=== PATIENT | female | born 1965 | race Caucasian/White ===

== ENCOUNTER 2023-10-22 08:16 | Emergency (ER) | payer OTHER, SELFPAY ==
[2023-10-22 08:25] VITALS: BP 134/61
[2023-10-22 08:32] VITALS: BMI 41.2
[2023-10-22 09:00] LABS: % Basophils 0.8 % (0-2); % Eosinophils 2.2 % (0-6); % Immature Granulocytes 0.9 % (0-0.5); % Lymphocytes 27.3 % (20.5-51.1); % Monocytes 6.5 % (1.7-9.3); % Neutrophils 62.3 % (42.2-75.2); Absolute Basophils 0.1 10^3/uL (0-0.2); Absolute Eosinophils 0.2 10^3/uL (0-0.7); Absolute Immature Granulocytes 0.1 10^3/uL (0-0.05); Absolute Monocytes 0.5 10^3/uL (0.1-0.6); Absolute Neutrophils 4.6 10^3/uL (1.4-6.5); Hematocrit 36.3 % (37.0-47.0); Mean Corp Hgb Conc. 33.1 g/dL (33.0-37.0); Mean Corpuscular Hgb 27.9 pg (27.0-31.0); Mean Corpuscular Volume 84.4 fL (81.0-99.0); Mean Platelet Volume 12.2 fL (7.4-10.4); Nucleated Red Blood Cells % 0 %; Platelet Count 150 10^3/uL (130-400); Red Cell Dist. Width 13.3 % (11.5-14.5); White Blood Cell Count 7.4 10^3/uL (4.8-10.8)
[2023-10-22 09:06] LABS: ALT (SGPT) 18 U/L (0-35); AST (SGOT) 26 U/L (14-36); Albumin 3.8 g/dl (3.5-5.0); Alkaline Phosphatase 110 U/L (38-126); Blood Urea Nitrogen 10 mg/dl (7-17); Carbon Dioxide 25 mmol/L (22-30); Chloride 104 mmol/L (98-107); Estimated Creatinine Clearance > 125 ml/min; Glucose 98 mg/dl (70-99); Potassium 3.8 mmol/L (3.5-5.1); Sodium 138 mmol/L (135-145); Total Bilirubin 0.5 mg/dl (0.2-1.3); Total Protein 6.3 g/dl (6.3-8.2); eGFR > 60.00
[2023-10-22 09:15] LABS: Troponin I < 0.012 ng/ml
--- NOTE | 2023-10-22 09:38 | ED.GENMED ---
History of Present Illness
General
Chief Complaint: Fainting/Passed Out
Source: patient and spouse
Exam Limitations: none
Time Seen by Provider: 10/22/23 08:45
Nursing documentation reviewed up to this point in time: agreed with
Travel History
Have you had any contact with someone who has COVID-19?: No
Do you have any symptoms of coronavirus? Fever > 100 degrees, chills, cough, shortness of breath, sore throat, loss of taste or smell, muscle aches, or headache?: No
History of Present Illness
History of Present Illness:
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
No chest pain or shortness of breath, had a fever 2 nights ago diagnosed with a UTI, started on Bactrim she was having hematuria at that time, she takes Eliquis for A-fib or blood clots she thinks, she has been compliant with it, no headaches, no
slurred speech
Past History
Past History
ED Past Medical History: GERD, Hypercholesterolemia, NIDDM and Other (Sleep apnea, anemia)
ED Past Surgical History: Orthopedic (right knee, right shoulder Dr. Brito)
Social History
Tobacco: Former smoker
Alcohol: None
Drug: None
Personal:
Living: with family
Employment: Employed
Family History
Family History: Other (CVA)
Review of Systems
Review of Systems
Other source history: family
All Other Systems: Not applicable
Constitutional: Reports fever and fatigue
EENT: Reports no symptoms
Respiratory: Reports no symptoms
Cardiac: Reports syncope; Denies diaphoresis or palpitations
ABD/GI: Reports no symptoms
: Reports flank pain and bleeding (Hematuria that improved)
Musculoskeletal: Reports neck pain
Skin: Reports no symptoms
Neurological: Reports weakness
Phy Exam
Physical Exam
Physical Exam:
Physical Exam
General: no apparent distress, not acutely ill
Neck: No tongue bite mild paraspinal pain on the
Heart: Regular
Lungs: no acute respiratory distress. clear bilaterally
Abdomen: Mild suprapubic tenderness
Neuro: alert and oriented. no focal neurological deficits
Skin: no rash
Psychiatric: well kept. interactive and cooperative
Extremities: no edema.
Course
Orders/Labs/Results
Orders:
Orders
10/22/23 08:23
Electrocardiogram (*1) Urgent
Reason for Study: Syncope
10/22/23 08:24
EKG- Treatment ONCE
10/22/23 08:34
CMP [Comprehensive Metabolic Panel] Urgent
Complete Blood Count/With Diff Urgent
Troponin I Urgent
10/22/23 09:03
Cardiac Monitoring- Treatment ONCE
10/22/23 09:11
Electrocardiogram (*1) Urgent
Reason for Study: Other
Other Reason for Exam: trauma
CT Cervical Spine W/o Iv Contr Urgent
Comment:
Reason For Exam: fall
CT Head W/o Iv Contrast Urgent
Comment:
Reason For Exam: fall
EKG- Treatment ONCE
CR Chest - 2 Views Urgent
Comment:
Reason For Exam: fall
10/22/23 09:12
CT Abd/pel Without Iv Or Oral Urgent
Comment:
Reason For Exam: Flank pain fever hematuria fall
10/22/23 09:22
0.9% Sodium Chloride 1000 ml [Nss] 1,000 ml IV BOLUS
10/22/23 09:38
Orthostatic VS- Treatment ONCE
10/22/23 09:47
Urinalysis Reflex To Culture Urgent
Date Specimen was Collected: 10/22/23
Time Specimen was Collected: 09:46
10/22/23 13:13
Phenazopyridine HCl [Pyridium] 200 mg PO NOW STA
Abnormal Lab Results
10/22/23 10/22/23 10/22/23
08:34 10:20 11:04
Hct 36.3 L %
(37.0-47.0)
MPV 12.2 H fL
(7.4-10.4)
Abs Immat Gran (auto) 0.1 H 10^3/uL
(0-0.05)
Immature Gran % 0.9 H %
(0-0.5)
POC Glucose 61 L mg/dl 159 H mg/dl
(70-99) (70-99)
10/22/23 08:34
10/22/23 08:34
Vital Signs
Initial and Last Documented VS:
Initial Vital Signs
Temp Pulse Resp BP Pulse Ox
98.4 F 69 16 134/61 98
10/22/23 08:25 10/22/23 08:25 10/22/23 08:25 10/22/23 08:25 10/22/23 08:25
Last Documented Vital Signs
Temp Pulse Resp BP Pulse Ox
98.4 F 66 13 128/62 98
10/22/23 08:25 10/22/23 12:45 10/22/23 12:45 10/22/23 12:12 10/22/23 08:25
*Critical Care Note
Total Time (30-74mins, 75-104mins- exclusive of procedures): Not Applicable
Update Note
Update Note:
1 PM labs noted imaging reports reviewed, EKG noted, did have transient episode of low blood sugar which may ultimately be her diagnosis today
Reviewed with patient she is having some mild suprapubic pain, although she does believe she can empty her bladder bladder scan was 450 states she emptied her bladder feeling better she tells me she got a call from her PCP that her urine culture was
negative, however stop her Bactrim start Pyridium
ED Attending Note
-
Portions of this chart may have been created with voice recognition software.� Occasional wrong word or��sound alike� substitutions may have occurred due to the inherent limitations of voice recognition software.
Discharge Plan
Departure
Patient Disposition: Home (Routine Discharge)
Date of Disposition: 10/22/23
Time of Disposition: 13:17
Patient with high blood pressure during this ER visit?: No
Condition: Good
Discharge Problem:
Syncope and collapse
Instructions: Syncope (Fainting) (DC)
Prescriptions:
New
phenazopyridine [Pyridium] 200 mg tablet
200 mg PO TID Qty: 6 0RF
No Action
pantoprazole 40 MG tablet,delayed release (DR/EC)
40 mg PO DAILY
cyanocobalamin (vitamin B-12) 1,000 MCG tablet
500 mcg PO DAILY
ferrous sulfate [FeroSul] 325 MG tablet
325 mg PO DAILY
fluoxetine 20 MG capsule
40 mg PO DAILY
cholecalciferol (vitamin D3) 1,000 UNITS tablet
5,000 units PO DAILY
insulin glargine [Basaglar KwikPen U-100 Insulin] 100 UNIT/ML insulin pen
70 units SC HS
Patient Comments:
53 units taken per instructions on 01/12/23
biotin 10,000 MCG capsule
1 tab PO DAILY
Eliquis 5 MG tablet
5 mg PO BID
gabapentin 100 mg Capsule
100 mg PO TID
rosuvastatin 10 mg Tablet
10 mg PO DAILY
Referrals:
Ignacio Winters MD [Family Provider] -
Activity Restrictions/Additional Instructions:
Stop your antibiotic treat plenty of fluids, Pyridium 3 times a day for the next 2 days
Interventions
Interventions:
*Risk Screen - Suicide Last Done: 10/22/23 08:25
*General Assessment Last Done: 10/22/23 08:25
*Neglect/Abuse Screening Last Done: 10/22/23 08:25
*ED COVID-19 Vaccine History Last Done: 10/22/23 08:25
ED- Cardiac Assessment Last Done: 10/22/23 08:40
ED- Neurological Assessment Last Done: 10/22/23 08:40
[2023-10-22] MEDS: NSS 1000 IV (09:46)
[2023-10-22 10:07] LABS: Urine Albumin Trace (Neg - Trace); Urine Bilirubin Negative (Negative); Urine Character Clear (Clear); Urine Color Yellow; Urine Glucose Negative (Negative); Urine Ketone Negative (Negative); Urine Leukocyte Negative (Negative); Urine Nitrite Negative (Negative); Urine Occult Blood Negative (Negative); Urine Specific Gravity 1.015 (<1.030); Urine Urobilinogen Negative (Neg - 1+)
[2023-10-22 10:22] LABS: Glucose - Point of Care 61 mg/dl (70-99)
[2023-10-22 11:06] LABS: Glucose - Point of Care 159 mg/dl (70-99)
[2023-10-22 12:08] VITALS: BP 132/60
[2023-10-22 12:11] VITALS: BP 130/60
[2023-10-22 12:12] VITALS: BP 128/62
[2023-10-22 12:18] VITALS: BP 128/62; BP 130/60; BP 132/60; PULSE 81; PULSE 82
[2023-10-22] MEDS: Pyridium 200 MG PO (13:22)
[2023-10-22 13:25] VITALS: BP 136/74
== END 2023-10-22 13:25 | disposition home or self-care (01) ==
LOC: EMR 08:16
PROVIDERS: EMERGENCY PHYSICIAN Emergency Medicine; FAMILY PHYSICIAN Family Medicine
DX: R55 Syncope and collapse (principal); R10.2 Pelvic and perineal pain; R50.9 Fever, unspecified; R31.9 Hematuria, unspecified; R11.0 Nausea; R53.83 Other fatigue; R10.9 Unspecified abdominal pain; R53.1 Weakness; Z87.891 Personal history of nicotine dependence; Z79.01 Long term (current) use of anticoagulants
CPT/HCPCS: 99285; 96360; 51798; 70450; 71046; 72125; 74176; 80053; 81003; 82962; 84484; 85025; 93005

== ENCOUNTER → 2023-11-10 07:15 | Outpatient (REF) | payer OTHER, SELFPAY | LOC: RAD 07:15 | PROVIDERS: ATTENDING PHYSICIAN Nurse Practitioner Family; REFERRING PHYSICIAN Family Medicine | DX: Z00.00 Encounter for general adult medical examination without abnormal findings (principal); Z12.31 Encounter for screening mammogram for malignant neoplasm of breast; Z13.820 Encounter for screening for osteoporosis; E04.2 Nontoxic multinodular goiter | CPT/HCPCS: 76536; 77080 ==

== ENCOUNTER → 2023-11-25 13:56 | Outpatient (REF) | payer OTHER, SELFPAY | LOC: WDC 13:56 | PROVIDERS: ATTENDING PHYSICIAN Nurse Practitioner Family | DX: Z12.31 Encounter for screening mammogram for malignant neoplasm of breast (principal) | CPT/HCPCS: 77063; 77067 ==

== ENCOUNTER → 2024-05-17 16:36 | Outpatient (REF) | payer OTHER, SELFPAY | LOC: PAVMRI 16:36 | PROVIDERS: ATTENDING PHYSICIAN Psychiatry & Neurology Neurology; FAMILY PHYSICIAN Family Medicine | DX: I63.9 Cerebral infarction, unspecified (principal) | CPT/HCPCS: 70544; 70547; 70551 ==

== ENCOUNTER → 2024-06-20 13:36 | Outpatient (REF) | payer OTHER, SELFPAY ==
--- NOTE | 2024-06-20 14:41 | CARDSERVLU ---
Echocardiogram with Lumason completed after protocol screening completed. Allergies verified.
Patent IV site: __RT AC___
IV site flushed with 0.9% NaCl pre and post administration.
Diluted bolus method utilized to enhance visualization of ventricular kaiser.
Total volume given: __4
__ mL
Patient tolerated all procedures well without complications.
--- NOTE | 2024-06-20 15:32 | PTCARENOTE ---
Heplock D/Jama, site clear, no redness, no edema at 1455. Pressure held,no bleeding, [id number] and taped. Pt offers no complaints.
== END ==
LOC: RCS 13:36
PROVIDERS: ATTENDING PHYSICIAN Internal Medicine Cardiovascular Disease; FAMILY PHYSICIAN Family Medicine
DX: R07.9 Chest pain, unspecified (principal)
CPT/HCPCS: 93017; 93350; Q9950

== ENCOUNTER 2024-08-10 06:03 | Day surgery (SDC) | payer OTHER, SELFPAY ==
[2024-07-26 08:08] VITALS: BMI 38.2
--- NOTE | 2024-07-26 08:18 | HPS.HSE ---
Family Physician
-
Family Physician: Ignacio Winters
Chief Complaint
-
Paroxysmal atrial fibrillation.
History of Present Illness
The patient is a 58-year-old female presenting today for paroxysmal atrial fibrillation. The patient reports recurrent palpitations and progressively worsening lightheadedness and dizziness secondary to this diagnosis. She previously
underwent an ablation in August 2021 for her arrhythmia. She had no episodes of atrial fibrillation for 2 years; however, over the last few months, she has had significant reoccurrences despite compliance with medical therapy. She is on current
pharmacological therapy with Flecainide. She takes oral anticoagulation with Eliquis. She notes that her current symptoms are greatly interfering with her activities of daily living and are overall impacting her quality of life. She is interested in
pursuing a repeat atrial fibrillation ablation for further management. She denies any current complaints today such as chest pain, shortness of breath, nausea, vomiting, cough, sore throat, or fever.
Medical History
Past Medical History
Past Medical History: Reports Other
Additional Past Medical History:
1. Paroxysmal atrial fibrillation, status post ablation 08/2021; pharmacological therapy with Flecainide and oral anticoagulation with Eliquis.
2. Supraventricular tachycardia, status post ablation 06/26/2021.
3. Hypertension.
4. Hyperlipidemia.
5. Coronary atherosclerosis.
6. Venous varicosities.
7. Obstructive sleep apnea, compliant with CPAP.
8. Bronchial asthma triggered by previous tobacco use.
9. Insulin-dependent diabetes with neuropathy, last A1c reportedly 6.7.
10. GERD with esophagitis.
11. Colon polyps.
12. Diverticulosis.
13. Fatty liver disease.
14. Splenomegaly.
15. Hemorrhoids.
16. Chronic diarrhea from Ozempic.
17. Remote migraines.
18. Multinodular thyroid goiter.
19. Cervical degenerative disc disease with stenosis.
20. History of iron deficiency anemia.
21. Anxiety.
22. Depression.
23. Obesity, BMI 38.1; status post gastric bypass 2018.
24. History of tobacco abuse.
Past Surgical History: Reports Other
Additional Past Surgical History:
1. Atrial fibrillation ablation.
2. SVT ablation.
3. Cardioversion.
4. Right knee ACL reconstruction.
5. Right rotator cuff repair.
6. Right shoulder arthroscopy.
7. Gastric bypass.
8. Colonoscopy x2.
9. Endoscopy x2.
Social History
Tobacco: Former Smoker (She is a former 1/2 pack per day cigarette smoker who quit tobacco altogether 10 years ago. )
Alcohol: Occasional
Personal:
Living: Other (She lives with her in a 1 story home. )
Family History
Family History: Not pertinent
Allergies / Home Medications
Allergy/Medication List:
Home medications:
1. Biotin 1 tablet p.o. daily.
2. Basaglar 50 units subcutaneous at bedtime.
3. Pantoprazole 40 mg p.o. daily.
4. Ferrous sulfate 325 mg p.o. daily.
5. Cyanocobalamin 1,000 mcg p.o. daily.
6. Cholecalciferol 5,000 units p.o. daily.
7. Escitalopram 40 mg p.o. daily.
8. Apixaban 5 mg p.o. twice a day.
9. Flecainide 100 mg p.o. daily.
10. Gabapentin 100 mg p.o. three times a day.
11. Rosuvastatin 10 mg p.o. daily.
12. Ozempic 2 mg subcutaneous on Wednesdays.
Allergies: Clarithromycin, Loracarbef, Augmentin, Strawberries, Bees.
Adverse drug reactions: Hydrocodone (nausea).
Review of Systems
-
A 12 point ROS was completed and negative except as noted: Yes
Physical Exam
Vital Signs
Blood pressure 156/84. Heart rate 73. Respirations 18. Pulse ox 98% on room air.
Height 5 feet, 6 inches. Weight 107.2 kg. BMI 38.1.
Physical Exam
General: Well Developed, Well Nourished and No Apparent Distress
HEENT: NormoCephalic, Moist mucous membranes, Atraumatic and PERRLA
Respiratory: Clear
Cardiac: Regular Rhythm
GI: Soft, Non Tender, Non Distended and Other (Obese. )
Musculoskeletal: Normal Gait & Station
Skin: Warm and Dry
Neuro: AO x 3 and Nonfocal/grossly intact
Laboratory Results
-
DIAGNOSTIC STUDIES as of 07/26/2024: White blood cell count 8.3. Hemoglobin 12.2. Platelet count 145,000. Sodium 138. Potassium 4.0. BUN 10. Creatinine 0.7. Glucose 107. Calcium 8.7. AST 21. ALT 17. Albumin 4.0. Type and screen A positive.
EKG 07/26/2024: Normal sinus rhythm. Cannot rule out anterior infarct, age undetermined.
Stress echocardiogram 06/20/2024: No echocardiographic evidence of myocardial ischemia. Overall, likely low risk stress test.
Impression/Plan
-
IMPRESSION/PLAN:
1. Paroxysmal atrial fibrillation: The patient is in need of an Affera atrial fibrillation ablation with Dr. Eze Wilhelm on 08/10/2024. The benefits and risks of the procedure have been explained to the patient. The patient understands these risks
and wishes to proceed. The patient will not be required to undergo a pre-procedural transesophageal echo as she reports compliance with her home oral anticoagulation. She is aware to hold one dose of her Eliquis prior to her procedure.
[2024-07-26 08:28] LABS: % Basophils 0.7 % (0-2); % Eosinophils 1.7 % (0-6); % Immature Granulocytes 0.5 % (0-0.5); % Lymphocytes 23.4 % (20.5-51.1); % Monocytes 6.1 % (1.7-9.3); % Neutrophils 67.6 % (42.2-75.2); Absolute Basophils 0.1 10^3/uL (0-0.2); Absolute Eosinophils 0.1 10^3/uL (0-0.7); Absolute Lymphocytes 1.9 10^3/uL (1.2-3.4); Absolute Monocytes 0.5 10^3/uL (0.1-0.6); Absolute Neutrophils 5.6 10^3/uL (1.4-6.5); Hematocrit 36.7 % (37.0-47.0); Hemoglobin 12.2 g/dL (12.0-16.0); Mean Corp Hgb Conc. 33.2 g/dL (33.0-37.0); Mean Corpuscular Hgb 28.6 pg (27.0-31.0); Mean Corpuscular Volume 85.9 fL (81.0-99.0); Mean Platelet Volume 12.1 fL (7.4-10.4); Nucleated Red Blood Cells % 0 %; Platelet Count 145 10^3/uL (130-400); Red Blood Cell Count 4.27 10^6/uL (4.20-5.40); Red Cell Dist. Width 12.5 % (11.5-14.5); White Blood Cell Count 8.3 10^3/uL (4.8-10.8)
[2024-07-26 08:49] LABS: ALT (SGPT) 17 U/L (0-35); AST (SGOT) 21 U/L (14-36); Alkaline Phosphatase 95 U/L (38-126); Blood Urea Nitrogen 10 mg/dl (7-17); Calcium 8.7 mg/dl (8.4-10.2); Carbon Dioxide 26 mmol/L (22-30); Chloride 103 mmol/L (98-107); Estimated Creatinine Clearance 109 ml/min; Glucose 107 mg/dl (70-99); Sodium 138 mmol/L (135-145); Total Bilirubin 0.6 mg/dl (0.2-1.3); Total Protein 6.4 g/dl (6.3-8.2); eGFR > 60.00
[2024-08-10] VITALS (23 sets, daily range): BP systolic 113–155; BP diastolic 62–89; BMI 37.9
[2024-08-10 07:03] LABS: Glucose - Point of Care 82 mg/dl (70-99)
--- NOTE | 2024-08-10 07:05 | PTCARENOTE ---
Pt's blood sugar is 82. Pt states she does get symptomatic in the 80's. Pt states she feels fine now, just tired. Dr Ramos made aware. No further treatment noted at this time. Will continue to monitor.
--- NOTE | 2024-08-10 07:11 | PTCARENOTE ---
Pt states she takes eliquis 10mg once daily instead of eliquis 5mg twice daily. Pt's last dose of eliquis was 09/08/[address] Wilhelm made aware of last dose of eliquis as well as blood sugar. Dr Wilhelm instructed pt the importance of taking
eliquis 5mg twice daily. Pt verbalized understanding of taking eliquis 5mg twice daily. Dr Wilhelm also made aware of pt's blood sugar of 82. Pt states she gets symptomatic in the 80's but feels fine now. No further treatment ordered at this time.
Will continue to monitor.
[2024-08-10] MEDS: TYLENOL 1000 MG PO (07:17)
[2024-08-10 08:39] LABS: ACT-LR - POC 302 Seconds (116-155)
[2024-08-10 09:07] LABS: ACT-LR - POC 294 Seconds (116-155)
[2024-08-10 09:22] LABS: ACT-LR - POC 274 Seconds (116-155)
[2024-08-10 09:27] LABS: Glucose - Point of Care 73 mg/dl (70-99)
[2024-08-10 09:37] LABS: ACT-LR - POC 245 Seconds (116-155)
[2024-08-10 09:50] LABS: Glucose - Point of Care 90 mg/dl (70-99)
[2024-08-10] MEDS: ZOFRAN 4 MG IV (10:03)
--- NOTE | 2024-08-10 10:05 | ITS.CL.ABL ---
Waistline Joiner Overlock - Ablation
Ablation
Procedure Report:
AFIB ablation:
Ms. Mcfadden is a very pleasant 58 yr old woman with symptomatic paroxysmal AF s/p AF ablation Jna 2021 with PVI (Radiofrequency) and had recurrent atrial fibrillation failed Flecainide is recommended a redo AF ablation.
Date of the Procedure:
08/10/2024
Indications:
Recurrent paroxysmal atrial fibrillation
Pre-Operative Diagnosis:
Recurrent paroxysmal atrial fibrillation
Post-Operative Diagnosis:
Recurrent paroxysmal atrial fibrillation
Procedure Performed:
Atrial fibrillation ablation with Pulsed-Field approach for pulmonary vein isolation
Performing Physician:
Eze Wilhelm MD
Assistants:
EP staff
Anesthesia:
See anesthesia records
Detailed Description of the Procedure:
Written informed consent was obtained from the patient after a full explanation of the risks and benefits of the procedure including the risks of sedation and anesthesia.
The patient was brought to the electrophysiology laboratory in stable condition in fasting state. Continuous electrocardiographic and hemodynamic monitoring was initiated.
The initial rhythm was normal sinus rhythm.
The procedure site was meticulously prepared with surgical scrub and allowed to dry with no pooling. Sterile draping was applied to cover the procedure site. The image intensifier was draped with sterile bag and positioned over the patient. After
infusion of local anesthetic, vascular access was obtained under ultrasound guidance and sheaths were placed over guide wire as detailed below.
Sheath and Catheter Placement:
The following catheters / sheaths were placed
Sheaths:
��������� 17Fr steerable sheath (MabayaadriLATTO�, Tatango) in right femoral
��������� 9Fr in right femoral vein
Catheters:
��������� OBEY HD Grid mapping catheter � at locations of RA, LA
��������� Farawave� PFA catheter
��������� ICE catheter -AcuNav - at locations of RA, SVC, and RV.
Intracardiac ECHO:
An 8-Venezuelan AcuNav intracardiac ECHO (ICE) probe was advanced through the 9-Venezuelan sheath in the right femoral vein into the right atrium under fluoroscopic and ICE ultrasound image guidance and a baseline ECHO study was performed. The left atrial
size was dilated. There was moderate tricuspid regurgitation. The aortic valve was grossly normal. There was normal left ventricular systolic functions. There is trace pericardial effusion. All the four veins were identified and has flow identified.
During the procedure, ICE was used for monitoring of complications, guidance of trans-septal puncture, monitor the catheter position and tracking ablation lesions. No change in the pericardial space noted throughout the procedure.
Trans-septal Puncture:
Heparin was initiated and infused to maintain appropriate ACT. A J-tipped guidewire was advanced through the 8-Venezuelan sheath in the right femoral vein into the superior vena cava under fluoroscopic and ICE guidance. The 9-Venezuelan sheath was exchanged
for a Faradrive sheath which was advanced into the superior vena cava. A transseptal RF pigtail via Faradrive connect system was utilized to perform the trans-septal puncture. The apparatus was withdrawn until it was in contact with the fossa
ovalis. The position was adjusted based on fluoroscopy and ultrasound images from ICE. Under fluoroscopic, hemodynamic and ICE ultrasound guidance, left atrium was cannulated by applying RF energy. Once atrial septum was cannulated, the pigtail wire
was advanced through the needle into the left atrium. The guide wire was advanced into the left superior pulmonary vein. Both the sheath and the dilator was advanced into the left atrium. The dilator with the needle was withdrawn. Blood was
aspirated from the Faradrive sheath and arterial blood confirmed. The sheath was flushed. Saline injection noted into the left atrium on ICE. The mapping catheter was advanced in the sheath into the left pulmonary vein. Left atrial pressure was
measured.
3D Electroanatomic Mapping:
Using the HD Grid catheter advanced through sheath into the left atrium, an electroanatomic map (EAM) of the left atrium was created using Matrix [employer]asuring mapping system. The map was used for localization of catheter position and tacking of ablation
lesions.
The EAM of the left atrium showed 3 pulmonary veins (A common left and two right sided veins) with all veins electrically isolated from the body the LA. It showed no significant scar in the LA. The LA was normal in size.
There was narrow antral lines and carinal areas had signals present that could generate the atrial fibrillation.
The EAM of the left atrium showed 4 pulmonary veins with two left sided and two right sided veins electrically connected to the body the LA. There was extensive areas of low voltage noted in the left atrium with minimal electrical activity in the
posterior wall in atrial fibrillation. But once mapped in sinus rhythm, the posterior and anterior kaiser lhad some healthy areas with patchy scar all over the LA.
The LA was dilated in size.
Following the EAM, preparation were made for ablation.
Ablation:
Ablation # 1: Pulmonary vein Isolation:
Glycopyrrolate 0.2 mg was given prior to the placement of ablation. Using Farave pulsed wave ablation system, pulmonary vein isolation was achieved. First the ablation catheter was placed in the LSPV and ostial ablation lesions were performed in a n
�Turin� formation all around the PV ostium circumferentially. Then the catheter was placed on the antral location with �Flower� formation and multiple ablation lesions were placed on the antrum of the vein.
In the similar fashion, the LIPV were isolated.
Then the catheter was moved to right sided veins. The ostial and antral ablations were placed as noted above to the RSPV and RIPV.
There were fractionated signals noted on the mitral isthmus and those areas were ablated.
Post ablation Electroanatomic mapping:
Once ablation was completed, the EAM of the LA was done again in sinus rhythm with excellent demarcation of LA myocardium and isolated antral tissue. There was dissociated signals were noted in the veins as well.
The YOLI had healthy signals and was not isolated.
EPS and Confirmation of the PVI and bidirectional block:
Following achievement of entrance block at the pulmonary veins, pacing from the HD catheter in each of the four veins at 10 milliamps for 2 milliseconds showed entrance and exit block. All PVI were rechecked at the end of the case and remained
isolated. Entrance and exit block were demonstrated in all veins.
The WACA lesions were extended out to the body of the LA.
Aggressive pacing maneuvers induced atrial fibrillation that degenerated to flutter / atrial tachycardia and then to sinus rhythm spontaneously. This was thought to be the effect of Flecainide that patient is on. No sustained arrhythmia was induced.
Procedure End
ICE study was done again that showed no epicardial accumulation. No complications noted.
Following the completion of the EP study, catheters were removed. Protamine 30 mg was given at the end of the procedure and ACT was checked repeatedly. The sheaths were removed and hemostasis achieved with manual compression after acceptable ACT is
achieved.
Left atrial Pressure:
Pre-Procedure: Mean LA pressure was 11mmHg
Post-Procedure: Mean LA pressure was 14mmHg
Post-Procedure: Mean LR pressure was 7mmHg
Estimated Blood loss:
<10 cc
Specimens Removed:
None.
Implants / Devices:
None
Urine output:
None
Packs / Drains/ Tubes:
None
Instrument / Sponge Count Correct:
Yes
Complications of the Procedure:
None
Condition of Patient at Time of Transfer:
Hemodynamically stable with no neurological or vascular compromise.
Summary:
Successful atrial fibrillation ablation with Pulsed Field approach for pulmonary vein isolation
Figures from the Procedure:
Figure 1: The electroanatomic mapping (EAM) of the left atrium with bipolar voltage (purple indicates normal electrical activity with pulido as no myocardial muscle electric activity indicating a line of block or scar.
--- NOTE | 2024-08-10 10:20 | PTCARENOTE ---
Pt c/o abdominal 'cramping' going straight across abdomen and rated 7/10. Lakesha MARTELL at pt bedside assessing pt's cramping and right groin. Pt did not take her pantoprazole today. Lakesha MARTELL ordered pantoprazole IV. Pharmacy made aware and
awaiting pharmacy to send medication. Will continue to monitor.
[2024-08-10 10:27] LABS: Glucose - Point of Care 119 mg/dl (70-99)
[2024-08-10] MEDS: NSS (PRESERVATIVE FREE) 10 ML IV (10:58)
[2024-08-10] MEDS: PROTONIX IV 40 MG IV (10:58)
--- NOTE | 2024-08-10 13:40 | PTCARENOTE ---
Dr Wilhelm at pt bedside speaking to pt and pt's .
--- NOTE | 2024-08-10 14:24 | PTCARENOTE ---
After ambulating to the bathroom, pt noted to have a small ooze noted on right groin dressing. Dressing removed. Small oozing noted. Manual pressure applied x 10 minutes. Hemostasis obtained. Dry, sterile 4x4 and tegaderm applied. Pt's at pt
bedside. Lakesha MARTELL made aware and states to observe pt. If pt walks around recovery room with no further oozing, pt ok for discharge at 3pm. Will continue to monitor.
--- NOTE | 2024-08-10 14:44 | W.PN.UPDATE ---
Update Note
Progress Note Update
58 yo WF s/p PVI (same day) She initially had some nausea and upper abdominal pain relief with zofran and protonix IV, denies cp, sob, naomie diet, voiding, amb w/o dizziness, EKG SR, R fem site c/d/i soft, had small ooze after ambulation but currently
no drainage. She will resume Eliquis tonight at home. Activity restrictions reviewed. 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 She is for d/c home after 3pm if groin stable.
--- NOTE | 2024-08-10 15:10 | PTCARENOTE ---
Pt ambulated around recovery room x2 without difficulty. Right groin dressing clean, dry, and intact. No bleeding or hematoma noted. Pt's at pt bedside. Pt ok for discharge.
== END 2024-08-10 15:18 | disposition home or self-care (01) ==
LOC: CATH 06:03
PROVIDERS: ATTENDING PHYSICIAN Internal Medicine Cardiovascular Disease; FAMILY PHYSICIAN Family Medicine; OTHER PHYSICIAN Internal Medicine Cardiovascular Disease
DX: I48.0 Paroxysmal atrial fibrillation (principal); R00.2 Palpitations; Z79.01 Long term (current) use of anticoagulants; E11.40 Type 2 diabetes mellitus with diabetic neuropathy, unspecified; Z98.890 Other specified postprocedural states; I47.10 Supraventricular tachycardia, unspecified; I10 Essential (primary) hypertension; E78.5 Hyperlipidemia, unspecified; I25.10 Atherosclerotic heart disease of native coronary artery without angina pectoris; I83.90 Asymptomatic varicose veins of unspecified lower extremity; G47.33 Obstructive sleep apnea (adult) (pediatric); Z87.891 Personal history of nicotine dependence; J45.909 Unspecified asthma, uncomplicated; Z79.4 Long term (current) use of insulin; K21.00 Gastro-esophageal reflux disease with esophagitis, without bleeding; Z86.0100 Personal history of colon polyps, unspecified; E66.9 Obesity, unspecified; Z68.38 Body mass index [BMI] 38.0-38.9, adult; K76.0 Fatty (change of) liver, not elsewhere classified; F41.9 Anxiety disorder, unspecified; F32.A Depression, unspecified; Z79.899 Other long term (current) drug therapy; Z87.19 Personal history of other diseases of the digestive system; Z88.0 Allergy status to penicillin; Z88.1 Allergy status to other antibiotic agents; Z98.84 Bariatric surgery status; D50.9 Iron deficiency anemia, unspecified; M50.30 Other cervical disc degeneration, unspecified cervical region; K52.9 Noninfective gastroenteritis and colitis, unspecified; R16.1 Splenomegaly, not elsewhere classified; K57.90 Diverticulosis of intestine, part unspecified, without perforation or abscess without bleeding; E04.9 Nontoxic goiter, unspecified
CPT/HCPCS: C1732; C1894; C1892; C1759; 36415; 80053; 82962; 85025; 85347; 86850; 86900; 86901; 93005; 93656; C1733; C1766

== ENCOUNTER → 2024-12-26 18:44 | Outpatient (REF) | payer OTHER, SELFPAY | LOC: WDC 18:44 | PROVIDERS: ATTENDING PHYSICIAN Family Medicine | DX: Z12.31 Encounter for screening mammogram for malignant neoplasm of breast (principal) | CPT/HCPCS: 77063; 77067 ==

== ENCOUNTER → 2025-02-05 10:08 | Outpatient (REF) | payer OTHER, SELFPAY | LOC: HWRAD 10:08 | PROVIDERS: ATTENDING PHYSICIAN Physician Assistant; FAMILY PHYSICIAN Family Medicine | DX: J32.8 Other chronic sinusitis (principal) | CPT/HCPCS: 70486 ==

== ENCOUNTER 2025-03-26 08:10 | Inpatient (IN) | payer OTHER, SELFPAY ==
[2025-03-26 08:39] VITALS: BP 126/98
[2025-03-26 08:45] VITALS: BMI 38.1
--- NOTE | 2025-03-26 08:56 | W.PN.CD ---
Addendum entered and electronically signed by Seng Marquez MD 03/26/25 10:05:
I saw and examined the patient.
The MANAGER CLUB's note was reviewed and I agree with the note.
Comment: Recurrent PAF following second AFib ablation. Admitted for dofetilide. I reviewed risks/benefits of this AAD and reviewed that future meds (OTC and prescription) need to be checked for drug drug interactions. QTc in office and admit ekg
now are good. Home after 6th dose.
Original Note:
Today's Communication / Plan
-
This is the H&P summary. Please see scanned H&P
Dofetilide loading per protocol after BMP and QTc assessment.
Impression / Plan
-
I/P: 59F with paroxysmal atrial fibrillation (status post atrial fibrillation ablation 08/2021 with repeat ablation with pulsed field approach 08/10/2024), coronary artery calcification on CT, HTN, HLD, type II DM, and PACs presents for dofetilide
loading
Primary help desk team leader: Dr. Marquez
Paroxysmal atrial fibrillation
- Ablation 08/2021 then repeated with pulsed field approach 08/2024, failed flecainide in the past, now with recurrence
- BMP and EKG then dofetilide initiation per protocol, this requires intensive monitoring
- Oral anticoagulation: Eliquis 5 mg twice daily, she denies missed doses and abnormal bleeding
- [id number] score of 3 (HTN, DM, female), perhaps for for vascular disease as she has coronary artery calcifications
- Continue telemetry
Hypertension
- Stable, follow
Paroxysmal atrial tachycardia, stable without palpitations
Type 2 diabetes mellitus, with hyperglycemia, controlled, most recent HgbA1c 6.5%
Coronary artery calcification on CT, goal LDL <70, no ASA as she is on apixaban
DILCIA, on CPAP
Obesity, BMI 38, prior gastric bypass, on Ozempic for type II DM
SUBJECTIVE:
Feeling well without chest pain, shortness of breath, and dizziness. No palpitations.
Physical Exam
Vital Signs/Labs
Vital Signs
Temp Pulse Resp Pulse Ox
97.9 F 75 17 97
03/26/25 08:39 03/26/25 08:39 03/26/25 08:39 03/26/25 08:39
03/25/25 03/26/25 03/27/25
06:59 06:59 06:59
Actual Weight 103.9 kg
Physical Exam
Constitutional: No acute distress and Comfortable
EENT: Anicteric and Moist mucous membranes
Cardiovascular: Rhythm & rate is regular and Pedal edema is absent
Respiratory: Respiratory effort normal and Lungs clear to auscul.
GI: Soft, Distention absent, Flat, Non tender and Normal bowel sounds
Neuro/Psych: AO x 3
Other: Skin (warm and dry without edema)
Data Reviewed
-
Date of Service: March 26, 2025
EKG: Ordered by me
Echo: Report Reviewed by me
Labs: Labs Ordered by me
Old Records: Reviewed
[2025-03-26 09:18] LABS: Hematocrit 39.8 % (37.0-47.0); Hemoglobin 13.5 g/dL (12.0-16.0); Mean Corp Hgb Conc. 33.9 g/dL (33.0-37.0); Mean Corpuscular Volume 84.7 fL (81.0-99.0); Platelet Count 141 10^3/uL (130-400); Red Cell Dist. Width 12.8 % (11.5-14.5)
--- NOTE | 2025-03-26 09:25 | W.CARD.TIKOS ---
Initiate Tikosyn
-
I verify that the patient has not taken any verapamil (Isoptin/Calan), ketoconazole (Nizoral), cimetidine (Tagamet), trimethoprim (Trimpex), trimethoprim/sulfamethoxazole (Bactrim), megesterol (Megace), prochlorperazine (Compazine),
hydrochlorothiazide (HCTZ), dolutegravir (Tivicay) or any Class I or Class III anti-arrhythmic within the last three days
AND
I verify that the patient has not taken amiodarone within the last THREE months, or that the patient's amiodarone plasma concentration is <0.3 mcg/mL.
I have assessed the baseline QTc interval (using QT for heart rate less than 60 bpm) and deemed the patient is appropriate for Dofetilide therapy. I understand that Tikosyn is contraindicated if the QTc is >440msec (500msec in patients with
ventricular conduction abnormalities).
Baseline QTc (in msec): 420
Ordering Physician: Seng Marquez
[2025-03-26 10:33] VITALS: BMI 38.1
--- NOTE | 2025-03-26 10:49 | PTCARENOTE ---
Patient admitted to IVU from home for Tikosyn loading. Placed on telemetry, IV placed, labs collected and EKG completed. Patient AO x3, independent in the room. NSR on telemetry. Oriented to room and call antwan, at bedside. Plan of care
reviewed, call antwan in reach
[2025-03-26] MEDS: VITAMIN D3 (cholecalciferol) 125 MCG PO (11:04)
[2025-03-26] MEDS: ELIQUIS 5 MG PO ×2 (11:04→21:25)
[2025-03-26] MEDS: TOPROL XL 50 MG PO ×2 (11:04→21:25)
[2025-03-26] MEDS: FEOSOL 325 MG PO (11:04)
[2025-03-26] MEDS: VITAMIN B-12 1000 MCG PO (11:04)
[2025-03-26] MEDS: CRESTOR 10 MG PO (11:04)
[2025-03-26] MEDS: TIKOSYN 500 MCG PO ×2 (11:04→22:37)
[2025-03-26] MEDS: PROTONIX 40 MG PO (11:05)
[2025-03-26] MEDS: LEXAPRO 20 MG PO (11:06)
[2025-03-26 11:56] VITALS: BP 137/78
[2025-03-26 12:11] LABS: Glucose - Point of Care 131 mg/dl (70-99)
[2025-03-26 12:22] LABS: Blood Urea Nitrogen 13 mg/dl (7-17); Calcium 9.5 mg/dl (8.4-10.2); Carbon Dioxide 25 mmol/L (22-30); Chloride 104 mmol/L (98-107); Estimated Creatinine Clearance 103 ml/min; Glucose 134 mg/dl (70-99); Potassium 4.4 mmol/L (3.5-5.1); Sodium 138 mmol/L (135-145); eGFR > 60.00
[2025-03-26 12:24] LABS: Blood Urea Nitrogen 12 mg/dl (7-17); Calcium 9.3 mg/dl (8.4-10.2); Carbon Dioxide 25 mmol/L (22-30); Chloride 105 mmol/L (98-107); Estimated Creatinine Clearance 121 ml/min; Glucose 136 mg/dl (70-99); HDL Cholesterol 51 mg/dl; LDL Cholesterol, Calculated 76 mg/dl; Potassium 4.4 mmol/L (3.5-5.1); Sodium 138 mmol/L (135-145); Very Low Density Lipoprotein 48 mg/dl (0-30); eGFR > 60.00
[2025-03-26 14:53] LABS: Glucose - Point of Care 114 mg/dl (70-99)
[2025-03-26 15:06] VITALS: BP 146/82
--- NOTE | 2025-03-26 16:09 | CM ---
spoke to pt in room, she is prev indep, lives withh her husb in a ranch home with 3 steps to enter. she denies nay dc planning needs. plan is for dc to e after tikosyn loading complete
[2025-03-26 17:29] LABS: Glucose - Point of Care 127 mg/dl (70-99)
[2025-03-26 19:00] VITALS: BP 153/76
[2025-03-26 21:22] VITALS: BP 138/77
[2025-03-26] MEDS: NEURONTIN 300 MG PO (21:25)
[2025-03-26 22:16] VITALS: BP 140/72
[2025-03-26 22:19] LABS: Glucose - Point of Care 129 mg/dl (70-99)
[2025-03-26] MEDS: LANTUS 0.48 UNITS SC (22:37)
[2025-03-27] VITALS (8 sets, daily range): BP systolic 120–173; BP diastolic 74–90
--- NOTE | 2025-03-27 02:20 | PTCARENOTE ---
Patient ambulates self in room. Tele monitor shows SR w/ occasional PVCS, HR in the 60-70's. EKG obtained 2hrs post 2nd dose of Tikosyn, QTc 448. Patient denies any pain or discomfort. POC ongoing, call moncada in reach.
[2025-03-27 07:22] LABS: Glucose - Point of Care 115 mg/dl (70-99)
[2025-03-27] MEDS: TIKOSYN 500 MCG PO ×2 (08:13→20:02)
[2025-03-27] MEDS: PROTONIX 40 MG PO (08:14)
[2025-03-27] MEDS: TOPROL XL 50 MG PO ×2 (08:14→20:01)
[2025-03-27] MEDS: ELIQUIS 5 MG PO ×2 (08:14→20:01)
[2025-03-27] MEDS: LEXAPRO 20 MG PO (08:14)
[2025-03-27] MEDS: CRESTOR 10 MG PO (08:14)
[2025-03-27] MEDS: VITAMIN B-12 1000 MCG PO (08:14)
[2025-03-27] MEDS: VITAMIN D3 (cholecalciferol) 125 MCG PO (08:14)
--- NOTE | 2025-03-27 10:04 | W.PN.CD ---
Today's Communication / Plan
-
Continue tele/ekgs
Home after 6 th dose of dofetilide
Impression / Plan
-
Background: 59F with paroxysmal atrial fibrillation (status post atrial fibrillation ablation 08/2021 with repeat ablation with pulsed field approach 08/10/2024), coronary artery calcification on CT, HTN, HLD, type II DM, and PACs presents for
dofetilide loading
Primary management lead: Dr. Marquez
Paroxysmal atrial fibrillation, recurrent despite 2 ablations (Also has symptomatic PACs and PAT)
- Rhythm: Paroxysmal and highly symptomatic. No AFib here this admit. Tolerating dofetilide so far
- Rate: Fine in sinus, in AFib 110s or so. Tolerating metoprolol
- Oral anticoagulation: Eliquis 5 mg twice daily, she denies missed doses and abnormal bleeding
- [id number] score of 3 (HTN, DM, female), perhaps for for vascular disease as she has coronary artery calcifications
- Continue telemetry: So far no PVCs/torsades/significant QT prolongation/AFib
Hypertension, Stable, follow
Type 2 diabetes mellitus, with hyperglycemia, controlled, most recent HgbA1c 6.5%
Coronary artery calcification on CT, goal LDL <70, no ASA as she is on apixaban
DILCIA, on CPAP
Obesity, BMI 38, prior gastric bypass, on Ozempic for type II DM
Subjective:
Feeling well without chest pain, shortness of breath, and dizziness. No palpitations.
Physical Exam
Vital Signs/Labs
Vital Signs
Temp Pulse Resp BP Pulse Ox
97.4 F 66 18 138/74 98
03/27/25 07:24 03/27/25 08:14 03/27/25 07:24 03/27/25 08:14 03/27/25 07:24
03/26/25 03/27/25 03/28/25
06:59 06:59 06:59
Actual Weight 103.9 kg
03/26/25 09:08
03/26/25 11:54
Triglycerides 243 mg/dl (10-149) H 03/26/25 11:54
LDL Cholesterol, Calc 76 mg/dl 03/26/25 11:54
VLDL Cholesterol, Calc 48 mg/dl (0-30) H 03/26/25 11:54
HDL Cholesterol 51 mg/dl 03/26/25 11:54
Physical Exam
Constitutional: No acute distress
EENT: Anicteric
Cardiovascular: Rhythm & rate is regular and Pedal edema is absent
Respiratory: Respiratory effort normal and Lungs clear to auscul.
GI: Soft and Distention absent
Neuro/Psych: AO x 3
Data Reviewed
-
Date of Service: March 27, 2025
--- NOTE | 2025-03-27 14:07 | CM ---
Reviewed chart. Telephone call to [facility], ([phone]) to check on co-pay for Dofetilide 500 mcg with Mrs. Cedenolaury to review. Updated her on prior auth. We also reviewed Good RX coupon but would have to go to a different pharmacy. Will
need a three script sent to Pharmacy for a three day supply to go home with her. Prior to admission she reside with her spouse in a one story home with three steps to enter. Prior to admission she was independent with ambulation and adls. She
does not have any DME in the home. She has a prescription plan with [facility] and uses [facility]. Medical work-up in progress. The discharge plan is to return home with her spouse when medically stable.
--- NOTE | 2025-03-27 18:52 | PTCARENOTE ---
~[id number]: Handoff report receieved from nightshift RN. Pt AOx4, NSR 60s on tele, SBP 130s, RA satting 98%. Pt denies pain at this time. OOB in the chair and independent in the room. All needs met at this time, call moncada within reach.
~[id number]: Patient's BP 173/90 and per patient she is requesting to 'shower at some point today if possible', Dr. Marquez made aware, no orders at this time.
~[id number]: Per Dr. Marquez, patient OK to shower.
~[id number]: Patient independent in room and sitting in waiting area painting. Pt does no c/o pain at this time. All needs met, call moncada within reach.
~[id number]: Patient showered independently.
~[id number]: VSS at this time. Patient independent in room. No c/o pain at this time. All needs met, call moncada within reach. Handoff report given to nightshift RN.
[2025-03-27] MEDS: NEURONTIN 300 MG PO (20:01)
[2025-03-27 22:05] LABS: Glucose - Point of Care 160 mg/dl (70-99)
[2025-03-27] MEDS: LANTUS 0.48 UNITS SC (22:05)
--- NOTE | 2025-03-27 22:54 | PTCARENOTE ---
Assumed care of the pt @ 1900. Pt is AAOx3 SR/SA on the monitor VSS. Tikosyn dose # 4 given post EKG QTc 440. Pt is independent in the room. Call moncada within reach.
[2025-03-28 04:39] VITALS: BP 129/66
[2025-03-28 07:26] VITALS: BP 134/73
[2025-03-28 07:31] LABS: Glucose - Point of Care 118 mg/dl (70-99)
[2025-03-28] MEDS: TIKOSYN 500 MCG PO ×2 (07:59→20:30)
[2025-03-28] MEDS: VITAMIN D3 (cholecalciferol) 125 MCG PO (08:24)
[2025-03-28] MEDS: ELIQUIS 5 MG PO ×2 (08:24→20:30)
[2025-03-28] MEDS: VITAMIN B-12 1000 MCG PO (08:24)
[2025-03-28] MEDS: CRESTOR 10 MG PO (08:24)
[2025-03-28] MEDS: TOPROL XL 50 MG PO ×2 (08:24→20:30)
[2025-03-28] MEDS: LEXAPRO 20 MG PO (08:33)
[2025-03-28] MEDS: PROTONIX 40 MG PO (08:33)
[2025-03-28] MEDS: FEOSOL 325 MG PO (09:28)
--- NOTE | 2025-03-28 10:49 | W.DS.TRANS ---
Addendum entered and electronically signed by JAYSHREE Perera 03/29/25 11:02:
Patient discharged was cancelled for 03/28/25 and she was monitored through 03/29/25. Otherwise, same information as below.
Original Note:
DC Summary - Rig Manager
-
Discharge Instructions:
Discharge Diagnosis/Procedures Paroxysmal atrial fibrillation
Dofetilide initiation
Diet 2 Gram Sodium,Diabetic, Carb Controlled,Low
Cholesterol
Activity As tolerated
Driving Restrictions As prior to admission
Bathing Restrictions None
Instructions:
Stand-Alone Forms:
Changes to Home Medications: Yes
Discharge Medications:
DC Medications w/original date entered in [facility]
pantoprazole 40 mg tablet,delayed release 40 mg PO DAILY 10/09/13
cyanocobalamin (vitamin B-12) 1,000 mcg tablet 1,000 mcg PO DAILY 06/26/21
cholecalciferol (vitamin D3) 25 mcg (1,000 unit) tablet 5,000 units PO DAILY 08/11/21
gabapentin 100 mg capsule 300 mg PO HS 01/06/23
rosuvastatin 10 mg tablet 10 mg PO DAILY 01/06/23
escitalopram oxalate 20 mg tablet (Lexapro) 20 mg PO DAILY 07/24/24
semaglutide 2 mg/dose (8 mg/3 mL) subcutaneous pen injector (Ozempic) 2 mg SC WE 07/26/24
Biotin 20090 Units 1 tab PO DAILY 08/10/24
insulin glargine 100 unit/mL subcutaneous solution (Lantus U-100 Insulin) 48 unit SC HS 08/10/24
ferrous sulfate 325 mg (65 mg iron) tablet (FeroSul) 325 mg PO Q48H 03/26/25
metoprolol succinate 50 mg tablet,extended release 24 hr 50 mg PO BID 03/26/25
apixaban 5 mg tablet (Eliquis) 5 mg PO BID #0 tabs 03/28/25
dofetilide 500 mcg capsule 500 mcg PO Q12H #60 caps 03/28/25
Home Medication Changes
dofetilide added
Pending Results: No
--- NOTE | 2025-03-28 11:17 | PTCARENOTE ---
Pt received this am with no c/o of any pain or sob. OOB ad harriet, gait steady. Tolerating Tikosyn without any issues. SR, rate in the 60's to 70's.
[2025-03-28 11:55] VITALS: BP 154/90
[2025-03-28 11:56] LABS: Glucose - Point of Care 172 mg/dl (70-99)
--- NOTE | 2025-03-28 12:11 | CM ---
Reviewed chart. Met with Mrs. Mcfadden to review discharge plans. Telephone call to [facility] to check on status of Dofetilide script. It needs a prior auth. The Cardiology Office is working on prior auth. We will send three day supply
of Dofetilide to go home with her. Prior to admission she resides with her three spouse in a one story home with three steps to enter. Prior to admission she was independent with ambulation and adls. She does not have any DME in the home. She has a
prescription plan with [facility] and uses [facility]. Medical work-up in progress. The discharge plan is to return home with her spouse when medically stable.
--- NOTE | 2025-03-28 13:36 | W.PN.CD ---
Today's Communication / Plan
-
Continue dofetilide loading with telemetry. Home after sixth dose.
Impression / Plan
-
Background: 59F with paroxysmal atrial fibrillation (status post atrial fibrillation ablation 08/2021 with repeat ablation with pulsed field approach 08/10/2024), coronary artery calcification on CT, HTN, HLD, type II DM, and PACs presents for
dofetilide loading
Primary facilities painter: Dr. Marquez
Paroxysmal atrial fibrillation, recurrent despite 2 ablations (Also has symptomatic PACs and PAT)
- Rhythm: Paroxysmal and highly symptomatic. No AFib here this admit. Telemetry has shown several short salvos of atrial tachycardia cannot exclude seconds of atrial fibrillation. She is symptomatic with these short runs. Tolerating dofetilide so
far
- Rate: Fine in sinus, in AFib 110s or so. Tolerating metoprolol
- Oral anticoagulation: Eliquis 5 mg twice daily, she denies missed doses and abnormal bleeding
- [id number] score of 3 (HTN, DM, female), perhaps for for vascular disease as she has coronary artery calcifications
- Continue telemetry: So far no PVCs/torsades/significant QT prolongation/AFib
Hypertension, Stable, follow
Type 2 diabetes mellitus, with hyperglycemia, controlled, most recent HgbA1c 6.5%
Coronary artery calcification on CT, goal LDL <70, no ASA as she is on apixaban
DILCIA, on CPAP
Obesity, BMI 38, prior gastric bypass, on Ozempic for type II DM
Subjective:
Feeling well without chest pain, shortness of breath, and dizziness. She has had a few palpitations during hospitalization. I witnessed 1 and there was a very short run of atrial tachycardia that corresponded nicely to her palpitations.
Physical Exam
Vital Signs/Labs
Vital Signs
Temp Pulse Resp BP Pulse Ox
98 F 67 18 134/73 99
03/28/25 12:06 03/28/25 08:00 03/28/25 04:41 03/28/25 07:26 03/28/25 12:06
03/27/25 03/28/25 03/29/25
06:59 06:59 06:59
Actual Weight 103.9 kg
03/26/25 09:08
03/26/25 11:54
Triglycerides 243 mg/dl (10-149) H 03/26/25 11:54
LDL Cholesterol, Calc 76 mg/dl 03/26/25 11:54
VLDL Cholesterol, Calc 48 mg/dl (0-30) H 03/26/25 11:54
HDL Cholesterol 51 mg/dl 03/26/25 11:54
Physical Exam
Constitutional: No acute distress
Cardiovascular: Rhythm & rate is regular and Pedal edema is absent
Respiratory: Respiratory effort normal and Lungs clear to auscul.
GI: Soft, Distention absent and Non tender
Neuro/Psych: AO x 3
Data Reviewed
-
Date of Service: March 28, 2025
[2025-03-28 15:17] VITALS: BP 157/84
--- NOTE | 2025-03-28 16:37 | W.PN.UPDATE ---
Update Note
Progress Note Update
Patient reported to nursing that she wasn't feeling well this afternoon. Feeling her palps stronger (correlate with PVC's). Tele reviewed- there are no runs. She also reports about 1.5 hours of left-sided chest discomfort that feels like someone
punched her. Also very fatigued. I assessed patient. VSS. EKG stable. She looks okay and is in no distress. CP not worse with eating, palpation, or exertion. Discussed with Dr. Marquez and patient and nursing. Will cancel d/c for tonight. Monitor
overnight on telemetry. Check labs including electrolytes and trops. NPO after MN and hold metoprolol in AM in case patient needs stress per SS.
[2025-03-28 17:12] LABS: Hematocrit 38.5 % (37.0-47.0); Hemoglobin 13.0 g/dL (12.0-16.0); Mean Corp Hgb Conc. 33.8 g/dL (33.0-37.0); Mean Corpuscular Volume 84.8 fL (81.0-99.0); Platelet Count 150 10^3/uL (130-400); Red Cell Dist. Width 12.9 % (11.5-14.5)
[2025-03-28 17:15] LABS: Blood Urea Nitrogen 14 mg/dl (7-17); Calcium 9.7 mg/dl (8.4-10.2); Carbon Dioxide 27 mmol/L (22-30); Chloride 103 mmol/L (98-107); Estimated Creatinine Clearance 103 ml/min; Glucose 137 mg/dl (70-99); Magnesium 1.9 mg/dl (1.6-2.3); Potassium 4.4 mmol/L (3.5-5.1); Sodium 138 mmol/L (135-145); eGFR > 60.00
[2025-03-28 17:20] LABS: Troponin I < 0.012 ng/ml
[2025-03-28 17:34] LABS: Glucose - Point of Care 113 mg/dl (70-99)
--- NOTE | 2025-03-28 18:14 | PTCARENOTE ---
Pt c/o of feeling frequent PVC's and after about an hour stated she started with a left chest ache that would come and go. ECG done with no changes. Pt remains in SR with occas to frequent PVC's. Divina Pradhan NP notified and saw the pt. Discharge
cancelled for today.
[2025-03-28 18:49] VITALS: BP 134/74
[2025-03-28] MEDS: NEURONTIN 300 MG PO (20:30)
[2025-03-28] MEDS: LANTUS 0.48 UNITS SC (20:30)
[2025-03-28 20:34] LABS: Glucose - Point of Care 142 mg/dl (70-99)
[2025-03-28 22:41] VITALS: BP 114/71
[2025-03-28 23:12] LABS: Troponin I < 0.012 ng/ml
--- NOTE | 2025-03-29 01:58 | PTCARENOTE ---
Assumed care of the pt @ 1900. Pt is AAOx3 SR/SA on the monitor. VSS denies chest pain . Pt is independent in the room wearing CPAP for sleep. POC discussed with pt including NPO after mn. Call moncada within reach.
[2025-03-29 04:09] VITALS: BP 108/65
[2025-03-29 05:09] LABS: Troponin I < 0.012 ng/ml
[2025-03-29 08:03] VITALS: BP 117/70
[2025-03-29] MEDS: TIKOSYN 500 MCG PO (08:04)
[2025-03-29] MEDS: VITAMIN B-12 1000 MCG PO (08:04)
[2025-03-29] MEDS: CRESTOR 10 MG PO (08:04)
[2025-03-29] MEDS: PROTONIX 40 MG PO (08:04)
[2025-03-29] MEDS: VITAMIN D3 (cholecalciferol) 125 MCG PO (08:04)
[2025-03-29] MEDS: ELIQUIS 5 MG PO (08:04)
[2025-03-29] MEDS: LEXAPRO 20 MG PO (08:04)
[2025-03-29 08:09] LABS: Glucose - Point of Care 118 mg/dl (70-99)
--- NOTE | 2025-03-29 09:00 | W.PN.CD ---
Today's Communication / Plan
-
- Discharge home today
Impression / Plan
-
Background: 59F with paroxysmal atrial fibrillation (status post atrial fibrillation ablation 08/2021 with repeat ablation with pulsed field approach 08/10/2024), coronary artery calcification on CT, HTN, HLD, type II DM, and PACs presents for
dofetilide loading
Primary flatwork ironer: Dr. Marquez
Paroxysmal atrial fibrillation, recurrent despite 2 ablations (Also has symptomatic PACs and PAT)
- Rhythm: Paroxysmal and highly symptomatic. No AFib here this admit. Telemetry has shown several short salvos of atrial tachycardia cannot exclude seconds of atrial fibrillation. She is symptomatic with these short runs. Tolerating dofetilide so
far. Repeat ablation 08/2024 showed isolated veins and no scar in RA and LA. The repeat ablation extended the antral lesions.
- Rate: Fine in sinus, in AFib 110s or so. Tolerating metoprolol. Low AF burden.
- Oral anticoagulation: Eliquis 5 mg twice daily, she denies missed doses and abnormal bleeding
- [id number] score of 3 (HTN, DM, female), perhaps for for vascular disease as she has coronary artery calcifications
- Continue telemetry: So far no PVCs/torsades/significant QT prolongation/AFib
chest pain
- No sign of EKG changes
- Had normal stress ECHO in 06/2024
- serial trop -ve x 3.
- Likely Musculo-skeletal pain.
Hypertension, Stable, follow
Type 2 diabetes mellitus, with hyperglycemia, controlled, most recent HgbA1c 6.5%
Coronary artery calcification on CT, goal LDL <70, no ASA as she is on apixaban
DILCIA, on CPAP
Obesity, BMI 38, prior gastric bypass, on Ozempic for type II DM
Subjective:
Feeling well without chest pain, shortness of breath, and dizziness. She has had a few palpitations during hospitalization.
Physical Exam
Vital Signs/Labs
Vital Signs
Temp Pulse Resp BP Pulse Ox
98.2 F 69 16 117/70 98
03/29/25 08:10 03/29/25 08:03 03/29/25 08:10 03/29/25 08:03 03/29/25 08:10
03/28/25 16:47
03/28/25 16:47
Magnesium 1.9 mg/dl (1.6-2.3) 03/28/25 16:47
Triglycerides 243 mg/dl (10-149) H 03/26/25 11:54
LDL Cholesterol, Calc 76 mg/dl 03/26/25 11:54
VLDL Cholesterol, Calc 48 mg/dl (0-30) H 03/26/25 11:54
HDL Cholesterol 51 mg/dl 03/26/25 11:54
LAB Results
03/28/25 03/28/25 03/29/25
16:47 22:42 04:16
Troponin I < 0.012 < 0.012 < 0.012
Physical Exam
Constitutional: No acute distress and Comfortable
EENT: Anicteric and Moist mucous membranes
Cardiovascular: Rhythm & rate is regular, Pedal edema is absent and JVD pressure is normal
Respiratory: Respiratory effort normal, Lungs clear to auscul. and Wheeze Absent
GI: Soft, Non tender and Normal bowel sounds
Neuro/Psych: Alert, Oriented and AO x 3
Data Reviewed
-
Date of Service: March 29, 2025
Medical Decision Making: Reviewed Test Results, Independent Historian Assessment, Test Interpretation and Review of Case with other Provider
EKG: Tracing Personally Visualized and interpreted
X-Ray/CT/US/MRI/NUC/PET: Image Personally Visualized and interpreted
Labs: Labs Reviewed by me
Old Records: Reviewed
--- NOTE | 2025-03-29 11:34 | CM ---
Reviewed chart. Met with Mrs. Mcfadden to review discharge plans. Telephone call to [facility] to check if they heard if prior auth. approved. [facility] has not heard if prior aith. approved. Still waiting for determination. "Abdoul"Bogdan is feeling better and maybe able to go home soon. She has the three day supply of Dofetilide to go home with her. Prior to admission she resides with her three spouse in a one story home with three steps to enter. Prior to admission she
was independent with ambulation and adls. She does not have any DME in the home. She has a prescription plan with [facility] and uses [facility]. Medical work-up in progress. The discharge plan is to return home with her spouse when
medically stable.
[2025-03-29 11:37] VITALS: BP 129/75
[2025-03-29 12:07] VITALS: BP 129/75
== END 2025-03-29 13:06 | disposition home or self-care (01) | DRG 310 ==
LOC: IVU 08:10
PROVIDERS: Nurse Practitioner; Nurse Practitioner Gerontology; ADMITTING PHYSICIAN Internal Medicine Cardiovascular Disease
DX: I48.0 Paroxysmal atrial fibrillation (principal); Z79.01 Long term (current) use of anticoagulants; I10 Essential (primary) hypertension; G47.33 Obstructive sleep apnea (adult) (pediatric); E11.9 Type 2 diabetes mellitus without complications; I25.10 Atherosclerotic heart disease of native coronary artery without angina pectoris; Z68.38 Body mass index [BMI] 38.0-38.9, adult; Z98.84 Bariatric surgery status; E66.9 Obesity, unspecified; E78.5 Hyperlipidemia, unspecified
CPT/HCPCS: 80048; 80061; 82962; 83735; 84484; 85027; 93005

== ENCOUNTER 2025-06-14 10:25 | Emergency (ER) | payer OTHER, SELFPAY ==
[2025-06-14 10:34] VITALS: BP 155/73
[2025-06-14 11:05] VITALS: BP 126/68
[2025-06-14 11:07] VITALS: BMI 38.4
[2025-06-14 11:18] LABS: Hematocrit 38.4 % (37.0-47.0); Hemoglobin 12.9 g/dL (12.0-16.0); Mean Corp Hgb Conc. 33.6 g/dL (33.0-37.0); Mean Corpuscular Volume 86.7 fL (81.0-99.0); Nucleated Red Blood Cells % 0 %; Platelet Count 159 10^3/uL (130-400); Red Cell Dist. Width 12.9 % (11.5-14.5)
[2025-06-14 11:28] LABS: ALT (SGPT) 38 U/L (0-35); AST (SGOT) 28 U/L (14-36); Albumin 4.4 g/dl (3.5-5.0); Alkaline Phosphatase 95 U/L (38-126); Blood Urea Nitrogen 16 mg/dl (7-17); Calcium 8.9 mg/dl (8.4-10.2); Carbon Dioxide 25 mmol/L (22-30); Chloride 105 mmol/L (98-107); Estimated Creatinine Clearance 84 ml/min; Glucose 220 mg/dl (70-99); Potassium 3.7 mmol/L (3.5-5.1); Sodium 137 mmol/L (135-145); Total Protein 7.1 g/dl (6.3-8.2); eGFR > 60.00
[2025-06-14 11:39] LABS: Troponin I 0.012 ng/ml
--- NOTE | 2025-06-14 11:53 | ED.GENMED ---
History of Present Illness
General
Chief Complaint: Chest Pain
Source: patient
Exam Limitations: none
Time Seen by Provider: 06/14/25 11:47
History of Present Illness
History of Present Illness:
See MDM
Past History
Past History
ED Past Medical History: Arrthythmia, GERD, Hypercholesterolemia, NIDDM and Other (Sleep apnea, anemia)
ED Past Surgical History: Cardiac and Orthopedic (right knee, right shoulder Dr. Brito)
Social History
Tobacco: Former smoker
Alcohol: None
Drug: None
Personal:
Living: with family
Employment: Employed
Family History
Family History: Other (CVA)
Phy Exam
Physical Exam
Physical Exam:
See MDM
Scores
Heart Score for Chest Pain Patients
STEMI patient?: No
History: Slightly or Non-Suspicious
ECG: Normal
Age: >45 - <65 years
Risk Factors: 1 or 2 Risk Factors
Troponin: </= Normal Limit
Heart Score for Chest Pain Patients: 2
Heart Score Risk: 2.5% MACE over next 6 weeks
Course
Orders/Labs/Results
Orders:
Orders
06/14/25 10:39
Electrocardiogram (*1) Urgent
Reason for Study: Chest Pain
EKG- Treatment ONCE
06/14/25 10:54
Cardiac Monitoring- Treatment ONCE
IV Insert/Care/Rem.- Treatment PRN
06/14/25 11:06
Complete Blood Count/With Diff Urgent
Comprehensive Metabolic Panel Urgent
Troponin I Urgent
Abnormal Lab Results
06/14/25
11:06
MPV 12.6 H fL
(7.4-10.4)
Abs Immat Gran (auto) 0.1 H 10^3/uL
(0-0.05)
Absolute Neuts (auto) 7.2 H 10^3/uL
(1.4-6.5)
Immature Gran % 0.7 H %
(0-0.5)
Glucose 220 H mg/dl
(70-99)
ALT 38 H U/L
(0-35)
06/14/25 11:06
06/14/25 11:06
Vital Signs
Initial and Last Documented VS:
Initial Vital Signs
Temp Pulse Resp BP Pulse Ox
97.8 F 70 20 155/73 96
06/14/25 10:34 06/14/25 10:34 06/14/25 10:34 06/14/25 10:34 06/14/25 10:34
Last Documented Vital Signs
Temp Pulse Resp BP Pulse Ox
97.8 F 65 18 124/59 97
06/14/25 10:34 06/14/25 12:00 06/14/25 12:00 06/14/25 12:00 06/14/25 12:00
MDM/Problems Addressed
Differential Diagnosis Includes:
Note:
CHIEF COMPLAINT(S)
Dizziness and chest pain.
HISTORY OF PRESENT ILLNESS
The patient is a 59-year-old female with a history of atrial fibrillation (AFib) and previous ablations, who presents with dizziness and chest pain. She experienced symptoms at approximately 7 a.m., including palpitations and a heart rate of 137
BPM, which lasted for three hours. The patient describes episodes of dizziness when taking deep breaths or closing her eyes, with associated chest tightness. She is currently on a blood thinner. Her ECG showed premature atrial contractions (PACs),
and the troponin level was within normal limits, suggesting her chest pain is not due to myocardial ischemia. The dizziness is a new symptom for her, and she denies nausea or vomiting. She reports a history of bariatric surgery (Randa-en-Y) and is
unsure if her chest pain is related to a previously diagnosed torn bicep tendon. Pt states she recently had a holter monitor and is supposed to have f/u with the communications station manager tomorrow
PAST MEDICAL AND SURGICAL HISTORY
History of atrial fibrillation and two prior ablations; Randa-en-Y gastric bypass surgery.
ADDITIONAL HISTORY OBTAINED FROM SOURCE OTHER THAN PATIENT
Per the patients report, she has a communications station manager Dr. Ta.
PHYSICAL EXAM
General: Alert, no acute distress.
Skin: Warm, dry.
Head: Normocephalic, atraumatic
Neck: Appears supple, trachea midline.
Eyes, Ears, Nose, Mouth, and Throat: Moist mucous membranes
Cardiovascular: No signs of cyanosis. Regular rate and rhythm
Respiratory: Respirations are non-labored. Lungs clear
Abdomen: Non-distended
Musculoskeletal: No deformities
Neurological: No focal neurological deficit observed.
Psychiatric: Cooperative, appropriate mood and affect.
DIFFERENTIAL DIAGNOSIS
The Differential Diagnosis includes, in no particular order and is not limited to:
- Atrial Fibrillation
- Premature Atrial Contractions
- Myocardial Ischemia
- Arrhythmia
- Hypertension-related symptoms
- Anxiety or Panic Disorder
- Cardiac Conduction Disorders
- Vasovagal syncope
- Medication side effects
- Gastroesophageal reflux disease
SUMMARY OF ENCOUNTER
The patient was seen in the emergency department due to episodes of dizziness and chest pain suspected to be due to atrial fibrillation and PACs. Her ECG showed PACs but no ischemic changes, and her troponin was normal. The dizziness is a new
symptom, and she denies any changes in medications except for a medication adjustment. She is currently under the care of communications station manager Dr. Boateng, who will manage her medication adjustments.
FOLLOW-UP INSTRUCTIONS
The patient is advised to contact her communications station manager, Dr. Boateng, for a follow-up appointment to discuss medication adjustments. She is encouraged to call the office immediately to schedule a follow-up visit.
MEDICAL DECISION MAKING
- Complexity of Data Reviewed: Chronic conditions affecting care, including a history of atrial fibrillation, prior ablations, and a report of PACs.
- Data:
Category 1:
- Cardiovascular studies, including ECG showing PACs.
- Risk:
- Prescription drug management: Patient is on a blood thinner.
- Consideration of Admission/Observation: Escalation of care including admission/observation was considered given the complexity and risk of the patients presenting complaint, exam findings, and their underlying comorbidities. However, ultimately,
it is felt the patient is safe for outpatient management with close follow-up. Reasoning: Work-up was reassuring and did not reveal any acute life-threatening processes, patients symptoms were controlled at reevaluation, reexamination was
reassuring, vitals are stable, patient agrees with discharge, and is reliable for follow-up.
SUMMARY OF ENCOUNTER
The patient was seen in the emergency department due to concerns of palpitations and chest discomfort. An ECG was performed, which showed no ischemic changes, and a troponin test was negative. The patients symptoms were random and not exertional,
leading to doubts about acute coronary syndrome. Concerns remain about the potential return of her atrial fibrillation. However, the patient has a follow-up appointment with her communications station manager scheduled for the next day and is comfortable with
outpatient management.
DISPOSITION
Discharge.
FOLLOW-UP INSTRUCTIONS
The patient is advised to follow up with her communications station manager as scheduled to discuss potential adjustments in her management plan, especially concerning her atrial fibrillation.
MEDICAL DECISION MAKING
-Complexity of Data Reviewed: Chronic conditions affecting care, including a history of atrial fibrillation and prior ablations. Differential diagnosis considered: Atrial Fibrillation, Premature Atrial Contractions, Myocardial Ischemia, Arrhythmia,
Hypertension-related symptoms, Anxiety or Panic Disorder, Cardiac Conduction Disorders, Vasovagal syncope, Medication side effects, Gastroesophageal reflux disease.
-Data:
Category 1
Admission tests ordered: ECG with findings of no ischemic changes, and troponin test, which was negative.
Category 2
Clinical information was obtained from an independent historian, per the patients report about a communications station manager consultation.
-Risk:
Consideration of Admission/Observation: Escalation of care including admission/observation was considered given the complexity and risk of the patients presenting complaint, exam findings and their underlying comorbidities. However, ultimately I
feel the patient is safe for outpatient management with close follow-up. Reasoning: Work-up is reassuring, does not reveal any acute life/organ-threatening processes, patients symptoms are well controlled upon reevaluation, reexamination is
reassuring, vitals are stable, patient agreeable with discharge, reliable for follow-up.
DIAGNOSIS
- Dizziness, likely secondary to PACs ICD-10 Code: R42
- Atrial Fibrillation ICD-10 Code: I48.91
- Chest pain, unspecified ICD-10 Code: R07.9
*Pulse Oximetry
SaO2: 98
Oxygen Mode of Delivery: Room air
Patient hypoxic: no
*EKG
Interpreted by ED Provider?: Yes
Interpretation: abnormal (Sinus rhythm at 73 bpm. Occasional PACs noted. Normal axis. No ST elevation)
*Critical Care Note
Total Time (30-74mins, 75-104mins- exclusive of procedures): Not Applicable
ED Attending Note
-
Portions of this chart may have been created with voice recognition software.� Occasional wrong word or��sound alike� substitutions may have occurred due to the inherent limitations of voice recognition software.
Discharge Plan
Departure
Patient Disposition: Home (Routine Discharge)
Date of Disposition: 06/14/25
Time of Disposition: 12:03
Patient with high blood pressure during this ER visit?: No
Discharge Problem:
Heart palpitations
Instructions: Palpitations - ED (DC)
Prescriptions:
No Action
pantoprazole 40 MG tablet,delayed release (DR/EC)
40 mg PO DAILY
cyanocobalamin (vitamin B-12) 1,000 MCG tablet
1,000 mcg PO DAILY
cholecalciferol (vitamin D3) 1,000 UNITS tablet
5,000 units PO DAILY
gabapentin 100 mg Capsule
300 mg PO HS
rosuvastatin 10 mg Tablet
10 mg PO DAILY
escitalopram oxalate [Lexapro] 20 mg Tablet
20 mg PO DAILY
Ozempic 2 mg/dose (8 mg/3 mL) Pen Injector
2 mg SC WE
insulin glargine [Lantus U-100 Insulin] 100 unit/mL Solution
48 unit SC HS
Biotin 87033 Units
1 tab PO DAILY
metoprolol succinate 50 mg Tablet Extended Release 24 Hr
50 mg PO BID
ferrous sulfate [FeroSul] 325 mg (65 mg iron) Tablet
325 mg PO Q48H
dofetilide 500 mcg Capsule
500 mcg PO Q12H Qty: 60 3RF
Eliquis 5 MG tablet
5 mg PO BID Qty: 0 0RF
Rx Instructions:
Important to take 1 tablet in AM and 1 tablet in PM!
Referrals:
Ignacio Winters MD [Family Provider, Family Practice]
Activity Restrictions/Additional Instructions:
Please return for any worsening symptoms.
You may return at any time if you have further concerns.
Please talk to your communications station manager tomorrow about your symptoms.
Thank you for choosing [facility].
Interventions
Interventions:
*Risk Screen - Suicide Last Done: 06/14/25 10:34
*General Assessment Last Done: 06/14/25 10:34
*Neglect/Abuse Screening Last Done: 06/14/25 10:34
*ED- Fall Risk Assessment Last Done: 06/14/25 11:12
*Nursing Disposition Last Done: 06/14/25 12:13
ED- Cardiac Assessment Last Done: 06/14/25 11:12
Discharge Date and Time
Discharge Date/Time: 06/14/25 12:14
Print Language: TUVALU[place]
[2025-06-14 12:00] VITALS: BP 124/59
== END 2025-06-14 12:14 | disposition home or self-care (01) ==
LOC: EMR 10:25
PROVIDERS: EMERGENCY PHYSICIAN Student in an Organized Health Care Education/Training Program; FAMILY PHYSICIAN Family Medicine
DX: R00.2 Palpitations (principal); E11.9 Type 2 diabetes mellitus without complications; E78.00 Pure hypercholesterolemia, unspecified; G47.30 Sleep apnea, unspecified; I48.91 Unspecified atrial fibrillation; Z87.891 Personal history of nicotine dependence; Z98.84 Bariatric surgery status
CPT/HCPCS: 99284; 80053; 84484; 85025; 93005

== ENCOUNTER 2025-07-04 21:19 | Emergency (ER) | payer OTHER, SELFPAY ==
[2025-07-04] VITALS (22 sets, daily range): BP systolic 110–172; BP diastolic 54–122; BMI 38.6
--- NOTE | 2025-07-04 21:41 | ED.GENMED ---
History of Present Illness
General
Chief Complaint: Heart Rate Problem
Source: patient
Time Seen by Provider: 07/04/25 21:30
History of Present Illness
History of Present Illness:
59-year-old female presents to the emergency room complaining of rapid heart rate, shortness of breath which began about an hour prior to arrival. Patient has a history of atrial fibrillation. She has had a couple ablations. No chest pain.
Patient is prescribed Eliquis and she has been compliant. She does not believe she has missed any doses.
Past History
Past History
ED Past Medical History: Arrthythmia, GERD, Hypercholesterolemia, NIDDM and Other (Sleep apnea, anemia)
ED Past Surgical History: Cardiac and Orthopedic (right knee, right shoulder Dr. Brito)
Social History
Tobacco: Former smoker
Alcohol: None
Drug: None
Personal:
Living: with family
Employment: Employed
Family History
Family History: Other (CVA)
Phy Exam
Physical Exam
Physical Exam:
General: Awake, Alert, Oriented X3. No acute distress.
Vitals: Tachycardic
Head: Atraumatic
Eyes: Pupils equal, EOMI
Throat: Airway intact, no exudates
Neck: Trachea midline
Lungs: Clear and equal b/l
Heart: Tachycardic, irregular rate, no murmurs
Abd: Soft, Nontender, No pulsatile mass
Neuro: Nonfocal
Skin: Warm, dry, no rash
Extremities: pulses equal b/l, no edema
Course
Orders/Labs/Results
Orders:
Orders
07/04/25 21:20
EKG [Electrocardiogram (*1)] Urgent
Reason for Study: Tachycardia
EKG- Treatment ONCE
07/04/25 21:51
Propofol [Diprivan] 20 ml .ROUTE .STK-MED
07/04/25 22:10
Electrocardiogram (*1) Urgent
Reason for Study: Chest Pain
EKG- Treatment ONCE
Vital Signs
Initial and Last Documented VS:
Initial Vital Signs
Temp Pulse Resp BP Pulse Ox
97.8 F 167 26 163/122 97
07/04/25 21:22 07/04/25 21:22 07/04/25 21:22 07/04/25 21:22 07/04/25 21:22
Last Documented Vital Signs
Temp Pulse Resp BP Pulse Ox
98.3 F 80 17 136/69 98
07/04/25 22:36 07/05/25 00:15 07/05/25 00:15 07/05/25 00:01 07/05/25 00:15
Procedures
Cardioversion
Indication:: Afib
Synchronized?: Yes
Energy Used: 200 joules
Number of attempts: 1
Successful?: Yes
Complications: Not apparent
ASA Risk Score: Class II
Any reaction or bad outcome to prior sedation/anesthesia?: No history of a reaction
Sedation level to be attained: moderate
Chart and allergies reviewed: Yes
Patient reassessed prior to sedation: Yes
Time out completed at (validating right patient & procedure): 21:56
History of difficult intubation: No
Airway free of obstruction: Yes
Patient has a gag reflex: Yes
Patient is able to open mouth: Yes
Patient has no dentures: Yes
Patient has no loose teeth: Yes
Medication administered by Provider during Moderate Sedation: IV Propofol (mg)
Total dose administered: 80
Time drug administered: 21:56
Start Time: 21:56
Stop Time: 21:06
MDM/Problems Addressed
Differential Diagnosis Includes:
SVT, atrial fibrillation, atrial flutter
MDM/Problems Addressed:
Patient presents with tachycardic rhythm which she is symptomatic from. EKG appears to be a flutter with 2-1 conduction. Patient underwent cardioversion which she tolerated. Now in sinus rhythm with PACs.
Chronic conditions affecting care: Arrhythmia
Acute Exacerbation and/or Progression of Chronic Illness: Arrhythmia
*Pulse Oximetry
SaO2: 97
Oxygen Mode of Delivery: Room air
Patient hypoxic: no
*EKG
Interpreted by ED Provider?: Yes
Interpretation: abnormal
Heart Rate: 151
Rate: tachycardiac
Rhythm: atrial flutter
[place]udley: normal axis
Interval: normal interval
QRS Pattern: normal QRS
Ischemia: non-specific ST changes
*[facility] Interpretation
Rate: tachycardiac
Interpretation: abnormal
Rhythm: atrial flutter
*Critical Care Note
Total Time (30-74mins, 75-104mins- exclusive of procedures): Not Applicable
ED Attending Note
-
Portions of this chart may have been created with voice recognition software.� Occasional wrong word or��sound alike� substitutions may have occurred due to the inherent limitations of voice recognition software.
Discharge Plan
Departure
Patient Disposition: Home (Routine Discharge)
Date of Disposition: 07/05/25
Time of Disposition: 00:04
Patient with high blood pressure during this ER visit?: No
Condition: Good
Discharge Problem:
Atrial flutter with rapid ventricular response
Instructions: Atrial fibrillation and atrial flutter - ED (DC), Sedation for procedures in adults - ED (DC), BLOOD PRESSURE
Prescriptions:
No Action
pantoprazole 40 MG tablet,delayed release (DR/EC)
40 mg PO DAILY
cyanocobalamin (vitamin B-12) 1,000 MCG tablet
1,000 mcg PO DAILY
cholecalciferol (vitamin D3) 1,000 UNITS tablet
5,000 units PO DAILY
gabapentin 100 mg Capsule
300 mg PO HS
rosuvastatin 10 mg Tablet
10 mg PO DAILY
escitalopram oxalate [Lexapro] 20 mg Tablet
20 mg PO DAILY
Ozempic 2 mg/dose (8 mg/3 mL) Pen Injector
2 mg SC WE
insulin glargine [Lantus U-100 Insulin] 100 unit/mL Solution
48 unit SC HS
Biotin 34671 Units
1 tab PO DAILY
metoprolol succinate 50 mg Tablet Extended Release 24 Hr
50 mg PO BID
ferrous sulfate [FeroSul] 325 mg (65 mg iron) Tablet
325 mg PO Q48H
dofetilide 500 mcg Capsule
500 mcg PO Q12H Qty: 60 3RF
Eliquis 5 MG tablet
5 mg PO BID Qty: 0 0RF
Rx Instructions:
Important to take 1 tablet in AM and 1 tablet in PM!
Interventions
Interventions:
*Risk Screen - Suicide Last Done: 07/04/25 21:22
*General Assessment Last Done: 07/04/25 21:22
*Neglect/Abuse Screening Last Done: 07/04/25 21:22
*ED- Fall Risk Assessment Last Done: 07/04/25 22:23
*ED COVID-19 Vaccine History Last Done: 07/04/25 21:22
*ED Influenza Vaccine History Last Done: 07/04/25 21:22
*Nursing Disposition Last Done: 07/05/25 00:25
ED- Cardiac Assessment Last Done: 07/04/25 22:00
ED- Pulmonary Assessment Last Done: 07/04/25 22:00
Discharge Date and Time
Discharge Date/Time: 07/05/25 00:27
Print Language: VIETNAMESE
--- NOTE | 2025-07-04 21:48 | EDRN ---
Dr. Sarah at bedside to explain cardioversion and go over consent, consent signed
[2025-07-05 00:01] VITALS: BP 136/69
== END 2025-07-05 00:27 | disposition home or self-care (01) ==
LOC: EMR 21:19
PROVIDERS: EMERGENCY PHYSICIAN Emergency Medicine; FAMILY PHYSICIAN Family Medicine
DX: I48.92 Unspecified atrial flutter (principal); I48.91 Unspecified atrial fibrillation; E78.00 Pure hypercholesterolemia, unspecified; E11.9 Type 2 diabetes mellitus without complications; G47.30 Sleep apnea, unspecified; Z87.891 Personal history of nicotine dependence
CPT/HCPCS: 92960; 99152; 99285; 93005